=== PATIENT | male | born 1950 | race Caucasian/White ===

== ENCOUNTER 2018-06-21 12:24 | Inpatient (IN) | payer OTHER ==
[2018-06-21 13:09] LABS: ADD MAN DIFF? NO
[2018-06-21 13:14] LABS: ABNORMAL IP MESSAGE 1; BASOPHILS % 0.6 % (0.0-2.0); EOSINOPHILS # 0.1 10^3/ul (0.0-0.5); EOSINOPHILS % 2.2 % (0.0-7.0); HEMATOCRIT 33.6 % (42.0-52.0); HEMOGLOBIN 10.7 g/dl (14.0-18.0); LYMPHOCYTES # 0.5 10^3/ul (0.8-2.9); LYMPHOCYTES % 7.9 % (15.0-51.0); MEAN CORPUSCULAR HEMOGLOBIN 31.8 pg (29.0-33.0); MEAN CORPUSCULAR HGB CONC 31.8 g/dl (32.0-37.0); MEAN PLATELET VOLUME 12.1 fl (7.4-10.4); MONOCYTE # 0.5 10^3/ul (0.3-0.9); MONOCYTES % 8.6 % (0.0-11.0); NEUTROPHIL # 5.1 10^3/ul (1.6-7.5); NEUTROPHILS % 80.4 % (39.0-77.0); PLATELET COUNT 124 10^3/UL (140-415); POSITIVE DIFF @See below; RED BLOOD COUNT 3.36 10^6/ul (4.70-6.10); RED CELL DISTRIBUTION WIDTH 16.1 % (11.5-14.5)
[2018-06-21 13:14] LABS: WHITE BLOOD COUNT 6.3 10^3/ul (4.8-10.8)
[2018-06-21 13:19] LABS: ADD UMIC YES; UR ASCORBIC ACID NEGATIVE (NEGATIVE); UR BACTERIA FEW /HPF (NONE SEEN); UR BILIRUBIN (Dip) NEGATIVE (NEGATIVE); UR BLOOD (Dip) NEGATIVE (NEGATIVE); UR CLARITY CLEAR (CLEAR); UR COLOR YELLOW (YELLOW); UR GLUCOSE (Dip) NEGATIVE (NEGATIVE); UR KETONES (Dip) NEGATIVE (NEGATIVE); UR LEUKOCYTE ESTERASE (Dip) NEGATIVE Leu/ul (NEGATIVE); UR MUCUS FEW /HPF (NONE SEEN); UR NITRITE (Dip) NEGATIVE (NEGATIVE); UR RBC 1 /HPF (0-5); UR TOTAL PROTEIN (Dip) 1+ mg/dl (NEGATIVE); UR UROBILINOGEN (Dip) NEGATIVE (NEGATIVE); UR WBC 1 /HPF (0-5)
[2018-06-21] MEDS: SOD CHLORIDE 0.9% 1,000 ML IV (13:20)
[2018-06-21] MEDS: ONDANSETRON 4 MG INJ IV (13:20)
[2018-06-21] MEDS: KETOROLAC 15 MG INJ IV (13:21)
[2018-06-21 13:32] LABS: ALANINE AMINOTRANSFERASE 57 IU/L (13-69); ALBUMIN 3.7 g/dl (3.3-4.9); ALKALINE PHOSPHATASE 126 IU/L (42-121); ANION GAP 14 (5-13); ASPARTATE AMINO TRANSFERASE 81 IU/L (15-46); BILIRUBIN,INDIRECT 0.8 mg/dl (0-1.1); BILIRUBIN,TOTAL 0.8 mg/dl (0.2-1.3); BLOOD UREA NITROGEN 63 mg/dl (7-20); CARBON DIOXIDE 20 mmol/L (21-31); CHLORIDE 108 mmol/L (97-110); CREATININE 1.81 mg/dl (0.61-1.24); Estimated GFR 37 mL/min (>60); GLUCOSE 148 mg/dl (70-220); LIPASE 109 U/L (23-300); POTASSIUM 5.1 mmol/L (3.5-5.1); SODIUM 142 mmol/L (135-144)
[2018-06-21 13:35] LABS: AMMONIA < 9 umol/l (9-30)
[2018-06-21 13:43] LABS: TROPONIN-I 0.033 ng/ml (0.000-0.120)
[2018-06-21 13:44] LABS: INR 1.12; PROTIME 14.6 Sec (11.9-14.9); PT RATIO 1.1
[2018-06-21 13:45] LABS: PARTIAL THROMBOPLASTIN TIME 34.6 Sec (23.0-35.0)
[2018-06-21 14:24] LABS: B-TYPE NATRIURETIC PEPTIDE 25900 PG/ML (0-125)
[2018-06-21] MEDS: FUROSEMIDE 40 MG INJ IV (14:49)
[2018-06-21] MEDS ORDERED: BISACODYL 10 MG SUPP PR (16:30)
[2018-06-21] MEDS ORDERED: ACETAMINOPHEN 325 MG TAB PO (16:30)
[2018-06-21] MEDS ORDERED: NACL 0.9% 3 ML SYG IV (16:30)
[2018-06-21] MEDS ORDERED: DOCUSATE SODIUM 100 MG CAP PO (16:30)
[2018-06-21] MEDS ORDERED: morphine 2 MG INJ IV (16:30)
[2018-06-21] MEDS ORDERED: NITROGLYCERIN (SL) 0.4 MG TAB SL (16:30)
[2018-06-21] MEDS ORDERED: ONDANSETRON 4 MG INJ IV (16:30)
[2018-06-21] MEDS ORDERED: MAGNESIUM HYDROXIDE 30ML CUP PO (16:30)
[2018-06-21] MEDS: PIPER-TAZO 3.375 GM IV (PMX) 100 ML IVPB ×3 (17:00→23:30)
[2018-06-21] MEDS ORDERED: GLUCAGON 1 MG INJ IM ×2 (17:00)
[2018-06-21] MEDS ORDERED: GLUCOSE GEL 15 GRAM TUBE PO ×4 (17:00)
[2018-06-21] MEDS ORDERED: DEXTROSE 50% 50 ML SYRINGE IV ×4 (17:00)
[2018-06-21] MEDS ORDERED: GLUCOSE GEL 15 GRAM TUBE BUCCAL ×2 (17:00)
[2018-06-21] MEDS: INSULIN ASPART [NOVOLOG] 3 ML PEN SC ×3 (18:00→22:59)
[2018-06-21 18:53] LABS: CREATINE KINASE 76 IU/L (23-200)
[2018-06-21 19:04] LABS: CK INDEX 3.7; TROPONIN-I 0.024 ng/ml (0.000-0.120)
[2018-06-21] MEDS ORDERED: HEPARIN 5,000 UNIT/0.5 ML VIAL (21:11)
[2018-06-21] MEDS: ATORVASTATIN 20 MG TAB PO (21:49)
[2018-06-21] MEDS: LORAZEPAM 0.5 MG TAB PO (21:50)
[2018-06-21] MEDS: HEPARIN 5,000 UNIT/1 ML VIAL SC (22:01)
[2018-06-22 01:02] LABS: CREATINE KINASE 58 IU/L (23-200)
[2018-06-22 01:14] LABS: CK INDEX 4.2; CK-MB 2.43 ng/ml (0.0-2.4); TROPONIN-I 0.034 ng/ml (0.000-0.120)
[2018-06-22] MEDS: ACCU-CHEK XX (02:00)
[2018-06-22] MEDS ORDERED: HEPARIN 5,000 UNIT/0.5 ML VIAL (05:20)
[2018-06-22] MEDS: FUROSEMIDE 40 MG INJ IV ×2 (05:26→14:05)
[2018-06-22] MEDS: PANTOPRAZOLE (EC) 40 MG TAB PO (05:28)
[2018-06-22 05:46] LABS: ADD MAN DIFF? NO
[2018-06-22 05:53] LABS: ABNORMAL IP MESSAGE 1; BASOPHILS % 0.6 % (0.0-2.0); EOSINOPHILS # 0.2 10^3/ul (0.0-0.5); EOSINOPHILS % 3.8 % (0.0-7.0); HEMATOCRIT 34.5 % (42.0-52.0); HEMOGLOBIN 11.2 g/dl (14.0-18.0); LYMPHOCYTES # 0.5 10^3/ul (0.8-2.9); LYMPHOCYTES % 11.5 % (15.0-51.0); MEAN CORPUSCULAR HEMOGLOBIN 32.3 pg (29.0-33.0); MEAN CORPUSCULAR HGB CONC 32.5 g/dl (32.0-37.0); MEAN CORPUSCULAR VOLUME 99.4 fl (82.0-101.0); MEAN PLATELET VOLUME 11.5 fl (7.4-10.4); MONOCYTE # 0.5 10^3/ul (0.3-0.9); MONOCYTES % 10.7 % (0.0-11.0); NEUTROPHIL # 3.4 10^3/ul (1.6-7.5); NEUTROPHILS % 73.2 % (39.0-77.0); PLATELET COUNT 121 10^3/UL (140-415); POSITIVE DIFF @See below; RED BLOOD COUNT 3.47 10^6/ul (4.70-6.10); RED CELL DISTRIBUTION WIDTH 15.9 % (11.5-14.5)
[2018-06-22 05:53] LABS: WHITE BLOOD COUNT 4.7 10^3/ul (4.8-10.8)
[2018-06-22] MEDS: HEPARIN 5,000 UNIT/1 ML VIAL SC (06:00)
[2018-06-22 06:08] LABS: INR 1.19; PROTIME 15.3 Sec (11.9-14.9); PT RATIO 1.2
[2018-06-22 06:09] LABS: PARTIAL THROMBOPLASTIN TIME 36.5 Sec (23.0-35.0)
[2018-06-22 06:11] LABS: ALANINE AMINOTRANSFERASE 43 IU/L (13-69); ALBUMIN 3.3 g/dl (3.3-4.9); ALBUMIN/GLOBULIN RATIO 1.22; ALKALINE PHOSPHATASE 120 IU/L (42-121); AMYLASE 75 U/L (11-123); ANION GAP 7 (5-13); ASPARTATE AMINO TRANSFERASE 42 IU/L (15-46); BLOOD UREA NITROGEN 59 mg/dl (7-20); CALCIUM 9.5 mg/dl (8.4-10.2); CARBON DIOXIDE 21 mmol/L (21-31); CHLORIDE 114 mmol/L (97-110); CREATININE 1.77 mg/dl (0.61-1.24); Estimated GFR 38 mL/min (>60); GLUCOSE 104 mg/dl (70-220); LIPASE 83 U/L (23-300); POTASSIUM 4.4 mmol/L (3.5-5.1); SODIUM 142 mmol/L (135-144)
[2018-06-22 06:16] LABS: CHOLESTEROL 92 mg/dl (100-200); HDL CHOLESTEROL 30 mg/dl (31-75); LDL CHOLESTEROL,CALCULATED 48 mg/dl; TRIGLYCERIDES 72 mg/dl (0-149)
[2018-06-22 06:16] LABS: PHOSPHORUS 4.2 mg/dl (2.5-4.9)
[2018-06-22 06:26] LABS: HEMOGLOBIN A1C 6.3 % (0-5.9)
[2018-06-22] MEDS: PIPER-TAZO 3.375 GM IV (PMX) 100 ML IVPB (06:31)
[2018-06-22] MEDS: INSULIN ASPART [NOVOLOG] 3 ML PEN SC ×2 (08:00→12:00)
[2018-06-22] MEDS: FISH OIL 1,000 MG CAP PO (08:53)
[2018-06-22] MEDS: CLOPIDOGREL 75 MG TAB PO (08:56)
[2018-06-22] MEDS: ISOSORBIDE MONONITRATE(SR)30 MG TAB PO (08:56)
[2018-06-22] MEDS: ALLOPURINOL 300 MG TAB PO (08:56)
[2018-06-22] MEDS: LINAGLIPTIN 5 MG TABLET PO (08:56)
[2018-06-22] MEDS: ASPIRIN 81 MG TAB PO (08:56)
== END 2018-06-22 15:25 | disposition home or self-care (01) | DRG 441 ==
LOC: E/R 12:24 → 6WM 14:48
DX: K76.1 Chronic passive congestion of liver (principal); I50.23 Acute on chronic systolic (congestive) heart failure; N17.9 Acute kidney failure, unspecified; I13.0 Hypertensive heart and chronic kidney disease with heart failure and stage 1 through stage 4 chronic kidney disease, or unspecified chronic kidney disease; E11.22 Type 2 diabetes mellitus with diabetic chronic kidney disease; N18.3 Chronic kidney disease, stage 3 (moderate); E78.5 Hyperlipidemia, unspecified; K21.9 Gastro-esophageal reflux disease without esophagitis; I25.10 Atherosclerotic heart disease of native coronary artery without angina pectoris; I25.5 Ischemic cardiomyopathy; R10.11 Right upper quadrant pain; Z79.4 Long term (current) use of insulin; Z79.82 Long term (current) use of aspirin; Z95.5 Presence of coronary angioplasty implant and graft
CPT/HCPCS: 36415; 71045; 76705; 78226; 80053; 80061; 81001; 82140; 82150; 82550; 82553; 82962; 83036; 83690; 83735; 83880; 84100; 84484; 85025; 85610; 85730; 93005; 93306; 96374; 99285-25

== ENCOUNTER 2018-08-06 16:01 | Emergency (ER) | payer OTHER ==
[2018-08-06] MEDS: SOD CHLORIDE 0.9% 500 ML IV (16:01)
[2018-08-06 16:53] LABS: WHITE BLOOD COUNT 6.1 10^3/ul (4.8-10.8)
[2018-08-06 16:53] LABS: ABNORMAL IP MESSAGE 1; HEMATOCRIT 36.5 % (42.0-52.0); HEMOGLOBIN 10.9 g/dl (14.0-18.0); MEAN CORPUSCULAR HEMOGLOBIN 30.4 pg (29.0-33.0); MEAN CORPUSCULAR HGB CONC 29.9 g/dl (32.0-37.0); MEAN CORPUSCULAR VOLUME 101.7 fl (82.0-101.0); MEAN PLATELET VOLUME 12.8 fl (7.4-10.4); PLATELET COUNT 51 10^3/UL (140-415); POSITIVE DIFF @See below; RED BLOOD COUNT 3.59 10^6/ul (4.70-6.10); RED CELL DISTRIBUTION WIDTH 16.9 % (11.5-14.5)
[2018-08-06 16:56] LABS: ADD MAN DIFF? YES
[2018-08-06] MEDS: EPINEPHRINE 4 MG in D5W 250 ML IV (17:07)
[2018-08-06 17:08] LABS: AADO2 Arterial 424.8 mmHg (7.0-24.0); Arterial Base Excess -13.6 mmol/L (-3.0-3); Arterial COHb 0.5 % (0.0-3.0); Arterial Fraction of Oxyhgb 98.2 % (93.0-99.0); Arterial HCO3 15.1 mmol/L (22.0-26.0); Arterial MetHb 0.3 % (0.0-1.5); Arterial pCO2 46.1 mmhg (35-45); MODE VENT - AC; Site LB
[2018-08-06 17:13] LABS: ALANINE AMINOTRANSFERASE 29 IU/L (13-69); ALBUMIN 2.7 g/dl (3.3-4.9); ALBUMIN/GLOBULIN RATIO 1.03; ALKALINE PHOSPHATASE 110 IU/L (42-121); ANION GAP 15 (5-13); ASPARTATE AMINO TRANSFERASE 59 IU/L (15-46); BILIRUBIN,INDIRECT 0.5 mg/dl (0-1.1); BILIRUBIN,TOTAL 0.5 mg/dl (0.2-1.3); BLOOD UREA NITROGEN 61 mg/dl (7-20); CALCIUM 8.4 mg/dl (8.4-10.2); CARBON DIOXIDE 15 mmol/L (21-31); CHLORIDE 108 mmol/L (97-110); CREATININE 1.78 mg/dl (0.61-1.24); Estimated GFR 38 mL/min (>60); GLUCOSE 236 mg/dl (70-220); POTASSIUM 3.3 mmol/L (3.5-5.1); SODIUM 138 mmol/L (135-144); TOTAL PROTEIN 5.3 g/dl (6.1-8.1)
[2018-08-06 17:24] LABS: ANISOCYTOSIS 2+ (0-0); BAND NEUTROPHILS #M 0.4 10^3/ul (0.0-0.6); BAND NEUTROPHILS % (M) 7 % (0-4); BASOPHILS % (M) 1 % (0-2); EOSINOPHILS % (M) 3 % (0-7); ERYTHROBLAST% (NRBC) (M) 2 % (0-0); LYMPHOCYTES #M 1.4 10^3/ul (0.8-2.9); LYMPHOCYTES % (M) 24 % (15-51); METAMYELOCYTES #M 0.1 10^3/ul (0.0-0.0); METAMYELOCYTES %M 2 % (0-0); MONOCYTE #M 0.1 10^3/ul (0.3-0.9); MONOCYTES % (M) 2 % (0-11); MYELOCYTES #M 0.1 10^3/ul (0.0-0.0); MYELOCYTES % (M) 3 % (0-0); PLATELET ESTIMATE DECREASED; POIKILOCYTOSIS 3+ (0-0); POLYCHROMASIA 3+ (0-0); SEG NEUT #M 3.6 10^3/ul (1.6-7.5); SEGMENTED NEUTROPHILS (M) % 58 % (39-77); SMUDGE%M 1 % (0-0)
[2018-08-06 17:27] LABS: TROPONIN-I 0.224 ng/ml (0.000-0.120)
== END 2018-08-06 18:00 | disposition short-term general hospital (02) ==
LOC: E/R 16:01
DX: I46.9 Cardiac arrest, cause unspecified (principal); I46.2 Cardiac arrest due to underlying cardiac condition; E11.9 Type 2 diabetes mellitus without complications; I25.10 Atherosclerotic heart disease of native coronary artery without angina pectoris; I10 Essential (primary) hypertension; Z79.01 Long term (current) use of anticoagulants; Z79.84 Long term (current) use of oral hypoglycemic drugs; Z98.61 Coronary angioplasty status
CPT/HCPCS: 31500; 36415; 36600; 71045; 80053; 82803; 84484; 85025; 92950; 93005; 94002; 96374; 99291-25